=== PATIENT | female | born 1995 | race Caucasian/White ===

== ENCOUNTER 2021-11-26 17:06 | Emergency (ER) | payer SELFPAY ==
[~2021-11-26] VITALS: Ht 162.6 cm; Wt 68.0 kg
--- NOTE | 2021-11-26 17:15 | NUR ---
[id number] C/O R SPONTANEOUS SHOULDER PAIN SINCE THIS MORNING 03/14PS. PLACED COMFORTABLY IN CHAIR. VITALS CHECKED.
[2021-11-26] MEDS ORDERED: CYCLOBENZAPRINE 10 MG TABLET PO ONE (17:30)
[2021-11-26] MEDS ORDERED: KETOROLAC TROMETHAMINE INJ 60 MG/2 ML VIAL IM ONE (17:30)
[2021-11-26] MEDS ORDERED: KETOROLAC TROMETHAMINE INJ 30 MG/ML VIAL ONE (17:51)
[2021-11-26] MEDS ORDERED: CYCLOBENZAPRINE 10 MG TABLET ONE (17:52)
--- NOTE | 2021-11-26 18:04 | NUR ---
DISCLAIMER FOR NOT BEING SIGNED BY PATIENT.
[2021-11-26] MEDS ORDERED: CYCL5TAB PO (19:05)
[2021-11-26] MEDS ORDERED: IBUP-1953 PO (19:05)
--- NOTE | 2021-11-26 20:04 | NUR ---
Patient discharged to home in stable condition. Written and verbal after care instructions given. Patient verbalizes understanding of instruction.
[2021-11-26 20:05] VITALS: BP 112/62
== END 2021-11-26 20:10 | disposition home or self-care (01) ==
LOC: EDBD → ER 17:10
DX: M25.511 Pain in right shoulder (principal); R07.81 Pleurodynia; Z79.899 Other long term (current) drug therapy
CPT/HCPCS: 36415; 71100; 73030; 84484; 85378; 93005; 96372; 99285; J1885

== ENCOUNTER 2021-12-05 13:55 | Emergency (ER) | payer MEDICAID ==
[~2021-12-05] VITALS: Ht 162.6 cm; Wt 70.3 kg
[~2021-12-05 13:55] MED LIST: CYCL5TAB PO; IBUP-1953 PO
--- NOTE | 2021-12-05 14:05 | NUR ---
BIBRA FOR LOWER ABD PAIN +NAUSEA/DIARRHEA 3 DAYS. PT AAOX4, TACHYCARDIC, RR EVEN & UNLABORED. DENIES CP, SOB, DIZZINESS AT THIS TIME. AWAITING EVAL BY MATTHEW.
[2021-12-05 14:30] LABS: BASOPHILS # (AUTO) 0.1 K/uL (0.0-0.2); BASOPHILS % (AUTO) 0.3 % (0.0-2.0); EOSINOPHILS % (AUTO) 0.3 % (0.0-6.0); HEMATOCRIT 38 % (33-45); HEMOGLOBIN 12.4 g/dL (11.5-14.8); LYMPHOCYTES # (AUTO) 1.4 K/uL (0.8-4.8); MEAN CORPUSCULAR HGB CONC 33 g/dl (31.0-36.0); MEAN CORPUSCULAR VOLUME 81 fL (82-100); MONOCYTES # (AUTO) 0.7 K/uL (0.1-1.30); MONOCYTES % (AUTO) 3.9 % (2.0-12.0); NEUTROPHILS # (AUTO) 15.5 K/uL (1.8-8.9); NEUTROPHILS % (AUTO) 87.5 % (43.0-81.0); PLATELET COUNT (AUTO) 401 K/uL (150-450); RED BLOOD CELL COUNT(AUTO) 4.72 MIL/uL (4.0-5.2); WHITE BLOOD COUNT (AUTO) 17.8 K/uL (4.3-11.0)
[2021-12-05] MEDS ORDERED: IV NS 0.9% 1,000 ML IV ONE (14:30)
[2021-12-05] MEDS ORDERED: ONDANSETRON HCL/PF 4 MG/2 ML VIAL IV ONE (14:30)
[2021-12-05] MEDS ORDERED: IV NS 0.9% 1,000 ML BAG IV ONE (14:30)
[2021-12-05 14:42] LABS: CALCIUM, SERUM 9.1 mg/dL (8.5-10.1); CREATININE 0.9 mg/dL (0.6-1.3); POTASSIUM 3.3 mmol/L (3.5-5.1)
[2021-12-05 14:49] LABS: ALBUMIN 3.3 g/dL (3.4-5.0); BILIRUBIN,DIRECT 0.2 mg/dL (0.0-0.2); BILIRUBIN,TOTAL 0.5 mg/dL (0.2-1.0); TOTAL PROTEIN, SERUM 7.6 g/dL (6.4-8.2)
[2021-12-05] MEDS ORDERED: ONDANSETRON HCL/PF 4 MG/2 ML VIAL ONE (14:49)
--- NOTE | 2021-12-05 14:52 | NUR ---
MEDICATED FOR NAUSEA PER ERMD ORDER, PT JOSE WELL.
[2021-12-05 14:55] LABS: BILIRUBIN,URINE MODERATE (NEGATIVE); COLOR,URINE YELLOW (YELLOW); LEUKOCYTE ESTERASE ,URINE MODERATE (NEGATIVE); NITRITE, URINE NEGATIVE (NEGATIVE); PROTEIN,URINE NEGATIVE (NEGATIVE); UGLUCOSE NEGATIVE (NEGATIVE)
[2021-12-05 15:09] LABS: BACTERIA,URINE 1+ /HPF (None Seen); RBC,URINE 0-2 /HPF (0-2); SQUAMOUS EPITHELIAL CELL,UR Few /HPF (None Seen); WBC,URINE 51-80 /HPF (0-3)
[2021-12-05] MEDS ORDERED: KETOROLAC TROMETHAMINE 15 MG/ML VIAL ONE (15:51)
[2021-12-05] MEDS ORDERED: KETOROLAC TROMETHAMINE INJ 30 MG/ML VIAL IV ONE (16:00)
[2021-12-05] MEDS ORDERED: CEFTRIAXONE 1 G in IV D5W 50 ML IV ONE (16:00)
[2021-12-05] MEDS ORDERED: IBUP-1955 PO (18:32)
[2021-12-05] MEDS ORDERED: CEPH500C2 PO (18:32)
[2021-12-05 19:06] VITALS: BP 119/62
--- NOTE | 2021-12-05 19:06 | NUR ---
IV removed. Catheter intact and site benign. Pressure and 4x4 applied to site. No bleeding noted.Patient discharged to home in stable condition. Written and verbal after care instructions given. Patient verbalizes understanding of instruction.
== END 2021-12-05 19:06 | disposition home or self-care (01) ==
LOC: ER 13:59
DX: N39.0 Urinary tract infection, site not specified (principal); R10.2 Pelvic and perineal pain; Z60.2 Problems related to living alone; Z79.899 Other long term (current) drug therapy
CPT/HCPCS: 36415; 80048; 80076; 81001; 83690; 84703; 85025; 87077; 87086; 87186; 96361; 96365; 96375; 99284; J0696; J1885; J2405; J7030 ×2; J7060; 82272-TC